=== PATIENT | male | born 1975 | race Caucasian/White ===

== ENCOUNTER 2017-03-31 12:25 | Emergency (ER) | payer MEDICARE, MEDICAID ==
[~2017-03-31] VITALS: Ht 175.3 cm; Wt 149.7 kg
--- NOTE | 2017-03-31 12:54 | Emergency Room Report ---
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 N Clinical Suspician of Infection? N Mental Status: 1 - Regular (Normal Baseline) Sepsis Risk:Possible Sepsis Risk Have you (or family members/close friends) recently traveled outside the [place]? N If Yes, where/when: Have you had exposure to infectious disease within the past month? N TB? Other? Specify: AC unit fell onto his right knee and slid down pretibial area on R; c/o bruising to R pretibial area, diffuse pain; he drove to the ED w these complaints. ALLERGIES Coded Allergies: No Known Allergies (03/31/17) Home Medications Reported Medications No Known Home Medications History Medical History General CAD? No Angina: No [place]: No Hypertension? No Hyperlipidemia? No CHF? No DVT? No PE? No COPD? Yes Asthma? No Anemia? No GERD? No Gastric ulcers? No GI Bleed? No Hernia? No Thyroid Problems? No Hypothyroidism? No CVA? No Seizures? No Diabetes? No End Stage Renal Disease? No UTI? No Stones? No BPH? No GB Disease: No Nephritic Syndrome? No Asplenia? No Hepatitis? No Sickle Cell Disease? No Arthritis? No Migraines? No Cataracts? No Glaucoma? No MRSA? No HIV? No TB? No Anxiety? No Depression? No Cancer? No Site: N More? No Immunization Hx DT/Tetanus > 10 Years Ago Surgical Hx Previous Surgery?N Social History Smoking Hx Smoker: Current Every Day Smoker Tobacco: Yes Type Cigarettes Alcohol Alcohol: No Review of Systems All Other Systems Reviewed and Negative Musculoskeletal see HPI Skin see HPI Physical Exam Vital Signs Vital Signs Date Time Temp Pulse Resp B/P Pulse O2 O2 Flow FiO2 Ox Delivery Rate 03/31 1332 98.2 96 20 130/99 95 03/31 1306 20 03/31 1230 98.2 96 20 130/99 95 General Appearance normal appearance, WD/WN, no apparent distress, obese Eye Exam - bilateral eye normal exam, bilateral eye PERRL, bilateral eye EOMI Respiratory Status Yes: trachea midline. No: respiratory distress. Cardiovascular no peripheral edema, normal peripheral pulses Extremities diffuse pain, right knee, with neg anterior drawer sign, no laxity, no ballottement, no pain with varus or valgus maneuver; mid pretibial area slightly contused and abraded. FROM all joint, foot warm and well perfused, calf soft to palpation, CR less than two seconds, sensate throughout, brisk pop/DP/PT pulses. Strength 5 Upper Ext (L), 5 Upper Ext (R), 5 Lower Ext (L) Neurologic alert, normal exam, no motor/sensory deficits, oriented x 3 Medical Decision Making LABS/Meds/Orders Pt receiving controlled substance in ED? No Results/Orders Current Medication Orders Sig/Jc Start time Last Medication Dose Route Stop Time Status Admin Ketorolac 0 .STK-MED ONE 03/31 1303 DC Tromethamine .ROUTE Ketorolac 60 MG ONCE ONE 03/31 1300 DC 03/31 Tromethamine IM 03/31 1301 1306 Orders Procedure Date/time Status LOWER LEG-RT 03/31 1250 Active KNEE-3 VIEWS-RT 03/31 1250 Active XRAY/CT/US XRAY/CT/US XRAY knee, leg XR interpretation by reviewed by me Xray Results abnormal (a little STS neg fx ) Departure Departure Time of Disposition 1420 Disposition DC Home or Self Care(routine) Clinical Impression Primary Impression: Contusion of right leg Qualifiers: Encounter type: initial encounter Qualified Code: S80.11XA - Contusion of right lower leg, initial encounter Condition STABLE Referrals Alejandro Franz MD Patient Instructions Contusion Additional Instructions Keep leg elevated; RX Naproxen; see Dr. Franz for follow up one to two days; if blue or cold foot, go to closest ER; watch very closely for increased swelling to calf. Discharge Counseling Counseled pt/family regarding diagnosis, medications/RX, home care, follow up needs (s/sx to watch for comptsyndrom) Prescriptions Current Visit Scripts NAPROXEN (NAPROXEN 500MG TAB) 500 MG PO BIDP PRN pain #20 TAB ED Critical Care Critical Care No at 1429
[2017-03-31 14:35] VITALS: BP 130/99
--- NOTE | 2017-03-31 15:58 | RADIOLOGY REPORT PS360 ---
KNEE-3 VIEWS-RT HISTORY: Right knee pain and swelling and bruising direct blow ORDERING PHYSICIAN: Lesley Karimi MD PATIENT AGE: 41 years COMPARISON: None FINDINGS: No fracture or dislocation. No lytic or blastic change. Normal mineralization. No significant arthritic changes evident. No other significant findings IMPRESSION: Negative Knee
--- NOTE | 2017-03-31 15:58 | RADIOLOGY REPORT PS360 ---
LOWER LEG-RT HISTORY: Pain following injury direct blow ORDERING PHYSICIAN: Lesley Karimi MD PATIENT AGE: 41 years COMPARISON: None FINDINGS: No fracture or dislocation. Unremarkable soft tissues IMPRESSION: Negative right tib-fib.
--- OUTSIDE RECORDS SUMMARY | 2017-04-23 03:46 | External Medical Summary Rpt ---
Author Author , SHANNON ORTEGA Address Unknown Phone [email or web address] Purpose Continuity of Care Document - through 2016 Problems Code Diagnosis DOS Provider Status J44.9 Chronic obstructive pulmonary disease, unspecified S80.11XA CONTUSION OF RIGHT LOWER LEG, INITIAL ENCOUNTER S87.80XA Crushing injury of unspecified lower leg, initial encounter S87.81XA Crushing injury of right lower leg, initial encounter S93.401A Sprain of unspecified ligament of right ankle, initial encounter S93.409A Sprain of unspecified ligament of unspecified ankle, initial encounter X50.1XXA Overexertio n from prolonged static or awkward postures, initial encounter Z53.20 PROC/TRTMT NOT CRD OUT BEC PT DECISION FOR UNSP REASONS
--- OUTSIDE RECORDS SUMMARY | 2017-04-23 03:46 | External Medical Summary Rpt ---
Author Author SHANNON Hobson, SHANNON Hobson Organization [employer] Address Unknown Phone Unavailable
--- OUTSIDE RECORDS SUMMARY | 2017-04-23 03:46 | External Medical Summary Rpt ---
Author Author SHANNON Address Unknown Phone [email or web address] Purpose Continuity of Care Document - through 2016
--- OUTSIDE RECORDS SUMMARY | 2017-04-23 03:46 | External Medical Summary Rpt ---
Demographics Preferred Language Uzbek Marital Status Unknown Confucianist Affiliation Unknown Race Unknown Ethnic Group Unknown Author Author SHANNON Address Unknown Phone Immunization No patient found.
--- OUTSIDE RECORDS SUMMARY | 2017-04-23 03:46 | External Medical Summary Rpt ---
Author Author SHANNON Address Unknown Phone [email or web address] Purpose Continuity of Care Document - through 2016
--- OUTSIDE RECORDS SUMMARY | 2017-04-23 03:46 | External Medical Summary Rpt ---
Author Author , SHANNON ORTEGA Address Unknown Phone [email or web address] Purpose Continuity of Care Document - through [...]
--- OUTSIDE RECORDS SUMMARY | 2017-04-23 03:46 | External Medical Summary Rpt ---
Demographics Preferred Language Tajik Marital Status Unknown Baptism Affiliation Unknown Race Unknown Ethnic Group Unknown Author Author SHANNON Address Unknown Phone Immunization No patient found.
== END 2017-03-31 14:35 | disposition home or self-care (01) ==
LOC: ER 12:25
DX: S80.11XA Contusion of right lower leg, initial encounter (principal); W20.8XXA Other cause of strike by thrown, projected or falling object, initial encounter; Y92.9 Unspecified place or not applicable; F17.210 Nicotine dependence, cigarettes, uncomplicated

== ENCOUNTER 2017-04-04 18:46 | Emergency (ER) | payer MEDICARE, MEDICAID ==
[~2017-04-04] VITALS: Ht 175.3 cm; Wt 149.2 kg
[~2017-04-04 18:46] MED LIST: NAPROXEN SODIU500 MG PO
[2017-04-04 20:36] VITALS: BP 175/103
--- NOTE | 2017-04-05 07:03 | RADIOLOGY REPORT PS360 ---
ANKLE-RT-3 VIEWS HISTORY: Pain/sprain/strain with soft tissue swelling INJURY 4 DAYS AGO, INCREASED PAIN/SWELLING, BRUISING ORDERING PHYSICIAN: Mason Davenport MD PATIENT AGE: 41 years COMPARISON: None FINDINGS: No fracture or dislocation. No lytic or blastic change. There is normal mineralization.. The joint spaces are well-preserved. No significant degenerative/arthritic changes. No erosive changes evident. There is mild soft tissue swelling involving the medial aspect of the ankle IMPRESSION: Soft tissue swelling otherwise negative
--- NOTE | 2017-04-05 07:04 | RADIOLOGY REPORT PS360 ---
KNEE-3 VIEWS-RT HISTORY: Pain and swelling INJURY 4 DAYS AGO, INCREASED PAIN/SWELLING, BRUISING ORDERING PHYSICIAN: Mason Davenport MD PATIENT AGE: 41 years COMPARISON: None FINDINGS: No fracture or dislocation. No lytic or blastic change. Normal mineralization. No significant arthritic changes evident. No other significant findings IMPRESSION: Negative Knee
--- NOTE | 2017-04-05 07:04 | RADIOLOGY REPORT PS360 ---
FOOT-RT-3 VIEWS HISTORY: Pain and swelling INJURY 4 DAYS AGO, INCREASED PAIN/SWELLING, BRUISING ORDERING PHYSICIAN: Mason Davenport MD PATIENT AGE: 41 years COMPARISON: None FINDINGS: No fracture or dislocation. No lytic or blastic change. There is normal mineralization.. The joint spaces are well-preserved. No significant degenerative/arthritic changes. No erosive changes evident. IMPRESSION: Negative, no acute finding
== END 2017-04-04 21:31 | disposition left against medical advice (07) ==
LOC: ER 18:46
DX: Z53.29 Procedure and treatment not carried out because of patient's decision for other reasons (principal); M25.561 Pain in right knee; M79.671 Pain in right foot; M25.571 Pain in right ankle and joints of right foot

== ENCOUNTER 2017-06-01 18:53 | Emergency (ER) | payer MEDICARE, MEDICAID ==
[~2017-06-01] VITALS: Ht 175.3 cm; Wt 147.4 kg
--- OUTSIDE RECORDS SUMMARY | 2017-06-01 18:57 | External Medical Summary Rpt ---
Author Author [facility] Organization [facility] Address Unknown Phone Unavailable Care Team Providers Care Extractor Puller Name Role Phone DR NURA PCP [phone] [facility] [id number] Date(s): 04/04/17 - 04/05/17 [facility] [address] [place] [id number]- Discharge Diagnosis: Ankle sprain Discharge Diagnosis: Crush injury of leg Discharge Disposition: OP Self Care or Home Attending Physician: CINDY POLLACK DO Admitting Physician: CINDY POLLACK DO Referring Physician: CINDY POLLACK DO Reason for Visit SPRAIN OF UNSP LIGAMENT OF UNSPECIFIED ANKLE, INIT ENCNTR Vital Signs No data available for this section Problem List Condition Effective Status Health Informant Dates Status Chronic Active obstructive pulmonary disease(Conf irmed) Allergies, Adverse Reactions, Alerts No data available for this section Medications acetaminophen-hydrocodone ([place] 5 mg-325 mg oral tablet)1 Tablet(s) Oral Every 4 Hours as needed for pain for 3 Day(s). Refills: 0.Ordering provider: JENNIFER AGUILAR MD-YESSENIA ibuprofen (ibuprofen 600 mg oral tablet)1 Tablet(s) Oral Every 6 Hours for 10 Day(s). Refills: 0.Ordering provider: JENNIFER AGUILAR MD-EMR sulfamethoxazole-trimethoprim (Bactrim DS 800 mg-160 mg oral tablet)1 Tablet(s) Oral Two Times A Day for 7 Day(s). Refills: 0.Ordering provider: JENNIFER AGUILAR MD-YESSENIA Results No data available for this section Immunizations No data available for this section Procedures No data available for this section Social History No data available for this section Assessment and Plan No data available for this section Hospital Discharge Instructions Patient EducationAnkle Sprain
--- OUTSIDE RECORDS SUMMARY | 2017-06-01 18:57 | External Medical Summary Rpt | CCD ---
Demographics Preferred Language Georgian Marital Status Unknown Scientologist Affiliation Unknown Race Unknown Ethnic Group Unknown Author Author , SHANNON ORTEGA Address Unknown Phone Immunization No patient found.
--- OUTSIDE RECORDS SUMMARY | 2017-06-01 18:57 | External Medical Summary Rpt ---
Author Author [facility] Organization [facility] Address Unknown Phone Unavailable Care Team Providers Care Web Interface Developer Name Role Phone DR NURA PCP [phone] Encounter [facility] [id number] Date(s): 04/04/17 - 04/05/17 [facility] [address] [place] [address]- [phone] Discharge Diagnosis: Ankle sprain Discharge Diagnosis: Crush [...] data available for this section Medications acetaminophen-hydrocodone ([place] 5 mg-325 mg oral tablet)1 Tablet(s) Oral [...]
--- OUTSIDE RECORDS SUMMARY | 2017-06-01 18:57 | External Medical Summary Rpt | CCD ---
Author Author , SHANNON ORTEGA Address Unknown Phone [email or web address] Purpose Continuity of Care Document - through [...]
--- OUTSIDE RECORDS SUMMARY | 2017-06-01 18:57 | External Medical Summary Rpt | CCD ---
Author Author , SHANNON ORTEGA Address Unknown Phone [email or web address] Purpose Continuity of Care Document - through [...]
--- OUTSIDE RECORDS SUMMARY | 2017-06-01 18:57 | External Medical Summary Rpt | CCD ---
Author Author SHANNON Address Unknown Phone [email or web address] Purpose Continuity of Care Document - through 2016
--- OUTSIDE RECORDS SUMMARY | 2017-06-01 18:57 | External Medical Summary Rpt | CCD ---
Author Author SHANNON Address Unknown Phone [email or web address] Purpose Continuity of Care Document - through 2016
--- OUTSIDE RECORDS SUMMARY | 2017-06-01 18:57 | External Medical Summary Rpt | CCD ---
Demographics Preferred Language Azeri Marital Status Unknown Scientology Affiliation Unknown Race Unknown Ethnic Group Unknown Author Author , SHANNON ORTEGA Address Unknown Phone Immunization No patient found.
--- NOTE | 2017-06-01 19:25 | Urgent Treatment Center Report ---
See Addendum History of Present Issue Date/Time Seen by Provider 06/01/171908 Visit Reason Pt arrived:Walked Presenting Problem:PT C/O COUGH,CHEST CONGESTION X1 WEEK Location if Accident: Onset of symptoms date/time:/ or onset unknown for:MEDICAL HX UNKNOWN Have you (or family members/close friends) recently traveled outside the [place]? N If Yes, where/when: Have you had exposure to infectious disease within the past month? TB? Other? Specify: Patient states that he has been having cough and congestion for over a week now State that his throat is sore and his throat is raw and hurts when he swallows. State that it has continued to get worse. State that today he began having sinus drainage that was draining down the back of her throat State that his mother had pneumonia and he was worried that he may have it too ALLERGIES Coded Allergies: No Known Allergies (03/31/17) History Medical History General CAD? No Angina: No [place]: No Hypertension? No Hyperlipidemia? No CHF? No DVT? No PE? No COPD? Yes Asthma? No Anemia? No GERD? No Gastric ulcers? No GI Bleed? No Hernia? No Thyroid Problems? No Hypothyroidism? No CVA? No Seizures? No Diabetes? No Renal Insuffiency? No UTI? No Stones? No BPH? No GB Disease: No Nephritic Syndrome? No Asplenia? No Hepatitis? No Sickle Cell Disease? No Arthritis? No Migraines? No Cataracts? No Glaucoma? No MRSA? No HIV? No TB? No Anxiety? No Depression? No Cancer? No More? No Immunization HX DT/Tetanus > 10 Years Ago Surgical Hx Previous Surgery?N Social History Smoking Hx Smoker: Current Every Day Smoker Tobacco: Yes Type Cigarettes Alcohol Alcohol: No Review of Systems All Other Systems Reviewed and Negative Constitutional chills, fever ENT nose congestion, throat pain. Respiratory cough, shortness of breath, denies stridor Physical Exam Vital Signs Vital Signs Date Time Temp Pulse Resp B/P Pulse O2 O2 Flow FiO2 Ox Delivery Rate 06/01 1902 98.8 74 20 141/85 96 General Appearance normal appearance, WD/WN, no apparent distress Ear, Nose, Throat tonsillar swelling, Throat red, irritated, drainage noted in back of throat, tenderness noted maxillary sinuses Respiratory Status Yes: trachea midline, chest symmetrical, non tender chest. No: respiratory distress. Lung Sounds bilateral: rhonchi, wheezing. Cardiovascular normal exam, regular rate/rhythm, no peripheral edema Neurologic alert, normal exam, oriented x 3 Medical Decision Making LABS/Meds/Orders Pt receiving controlled substance in ED? No Results/Orders Current Medication Orders Sig/Jc Start time Last Medication Dose Route Stop Time Status Admin Albuterol 2 PUFFS Q4H6 06/01 2200 AC IH Albuterol/Ipratropium 3 ML ONCE ONE 06/01 1945 AC INH 06/01 1946 Miscellaneous 1 UNIT ONCE ONE 06/01 1945 AC XX 06/01 1946 Orders Procedure Date/time Status RT REQUEST ALBUTEROL INHALER 06/01 1941 Active CULTURE, SPUTUM 06/01 1939 Active RT REQUEST DUONEB 06/01 1932 Active UTC STREP SCREEN 06/01 1907 Active CHEST(2 VIEWS-NOT PORTABLE) 06/01 1904 Active Departure Departure Time of Disposition 1923 Disposition DC Home or Self Care(routine) Clinical Impression Primary Impression: Sinusitis Qualifiers: Sinusitis location: unspecified location Chronicity: unspecified Qualified Code: J32.9 - Chronic sinusitis, unspecified Condition STABLE Patient Instructions DI for Sinusitis, Sinus Headache, Sinusitis Additional Instructions * No sign of bacterial infection. Likely viral. Virus can take 7-14 days to run their course *Nasal saline and bulb syringe or nose walter to remove nasal drainage and help with nasal congestion. Hard to eat, drink, or sleep with nasal congestion so important to keep nose cleaned out. * Monitor Temp. Tylenol and/or Ibuprofen as needed. ER if fever is no less than 101 despite alternating Tylenol and Ibuprofen * Encourage fluids, water, Gatorade, powerade, pedialyte if /toddler/or child * Warm salt water gargles for throat irritation *Warm fluids *Sore throat lozenges *Sleep elevated *humidifier or vaporizer Lots of rest Increase fluids, water, Gatorade, powerade *Your throat swab was sent to lab for culture. Those results area typically sent to your primary care physician. Be sure to follow up in 2-3 days if no improvement so they can review those results and treat if necessary If you dont have primary care I recommend you get one, but in the mean time you will have to return to a walk in clinic Follow up IMMEDIATELY for new or worsening of symptoms OR no noticeable improvement over the next 48-72 hours. 911 immediately for any life threatening symptoms such as chest pain or difficulty breathing Discharge Counseling Counseled pt/family regarding diagnosis, test results, medications/RX, home care Prescriptions Current Visit Scripts Levofloxacin (Levaquin 500MG) 500 MG PO DAILY #10 TAB Benzonatate (Tessalon Perle) 100 MG PO TID #15 SGL Albuterol Sulfate (Proair Hfa) 2 PUFFS IH QID #1 INH at 1941
[2017-06-01] MEDS ORDERED: LEVAQUIN500 MG PO (19:32)
[2017-06-01] MEDS ORDERED: TESSALON PERLE100 M1 PO (19:33)
[2017-06-01] MEDS ORDERED: PROAIR HFA0.09 MG/AC IH (19:40)
[2017-06-01 20:38] VITALS: BP 141/85
--- NOTE | 2017-06-01 22:44 | RADIOLOGY REPORT PS360 ---
CHEST(2 VIEWS-NOT PORTABLE) Ordering Physician: MANNY TRUJILLO APRN Patient Age: 41 years: Male HISTORY: PRODUCTIVE COUGH AND CHEST CONGESTION X1 WEEK TECHNIQUE: PA and lateral chest. COMPARISON :No previous FINDINGS Heart linda and mediastinal structures appear satisfactory. No definitive pneumonia. Question some slight coarsening of central markings on left which could reflect bronchitis mild central airway inflammation. However no focal pneumonia evident. No pleural effusion. No pneumothorax. IMPRESSION: . No focal pneumonia. Question minor central airway inflammatory changes bilateral. Subtle but could reflect mild bronchitis changes
== END 2017-06-01 20:38 | disposition home or self-care (01) ==
LOC: UTC 18:53
DX: J32.9 Chronic sinusitis, unspecified (principal); F17.210 Nicotine dependence, cigarettes, uncomplicated; J44.9 Chronic obstructive pulmonary disease, unspecified

== ENCOUNTER 2017-06-25 20:08 | Emergency (ER) | payer MEDICARE, MEDICAID ==
[~2017-06-25] VITALS: Ht 175.3 cm; Wt 149.8 kg
[~2017-06-25 20:08] MED LIST changes: +LEVAQUIN500 MG PO; +PROAIR HFA0.09 MG/AC IH; +TESSALON PERLE100 M1 PO
--- OUTSIDE RECORDS SUMMARY | 2017-06-25 20:15 | External Medical Summary Rpt | CCD ---
Author Author , SHANNON ORTEGA Address Unknown Phone [email or web address] Purpose Continuity of Care Document - 06-01-2017 through 2016 Problems Code Diagnosis DOS Provider [...] OUT BEC PT DECISION FOR UNSP REASONS Results Labs Lab Lab Date Result Refere Interp Status Commen Order Detail nces retati t Range on Streptococcus pneumoniae automated antibiotic susceptibility test (06-05-2017 06:25) Ampicil 11-23-2 <= 0.25 complet tomas 017 ug/ml ed suscept 06:25 ibility test by minimum inhibit ory concent ration Clindam 1123-2 <= 0.25 complet ycin 017 ug/ml ed suscept 06:25 ibility test by minimum inhibit ory concent ration Ceftria 23-2 <= 0.12 complet xone 017 ug/ml ed suscept 06:25 ibility test by minimum inhibit ory concent ration Cefotax 11-23-2 <= 0.12 complet mami 017 ug/ml ed suscept 06:25 ibility test by minimum inhibit ory concent ration Erythro 23-2 <= 0.12 complet mycin 017 ug/ml ed suscept 06:25 ibility test by minimum inhibit ory concent ration Levoflo -23-2 = 0.5 complet xacin 017 ug/ml ed suscept 06:25 ibility test by minimum inhibit ory concent ration Vancomy = 0.5 complet bettye 017 ug/ml ed suscept 06:25 ibility test by minimum inhibit ory concent ration Sputum culture (06-01-2017 19:45) Sputum [id number] complet culture 017 9 ed 19:45 Strepto coccus anginos us SCT STRCON STREPTO COCCUS CONSTEL LATUS L Screening group A Streptococcus antigen (06-01-2017 19:07) Screeni NOT NOTDETE complet ng 0[address] ed group A 19:07 D NOT DETECTE Strepto D L coccus antigen Comment: LOT # @[id number] EXP DATE @2020-03-06 Streptococcus pyogenes Ag [Presence] in Unspecified specimen (06-01-2017 19:07) Strepto NOT NOTDETE complet coccus 0[address] ed pyogene 19:07 D s Ag [Presen ce] in Unspeci fied specime n
--- OUTSIDE RECORDS SUMMARY | 2017-06-25 20:15 | External Medical Summary Rpt | CCD ---
Author Author , SHANNON ORTEGA Address Unknown Phone [email or web address] Purpose Continuity of Care Document - 06-01-2017 [...] concent ration Sputum culture (06-01-2017 19:45) Sputum [id number] complet culture 017 9 ed 19:45 Strepto coccus anginos us SCT STRCON STREPTO COCCUS CONSTEL LATUS L Screening group A Streptococcus antigen (06-01-2017 19:07) Screeni NOT NOTDETE complet ng 0[address]ED ed group A 19:07 D NOT DETECTE Strepto D L coccus antigen Comment: LOT # @[id number] EXP DATE @2020-03-06 Streptococcus pyogenes Ag [Presence] in Unspecified specimen (06-01-2017 19:07) Strepto NOT NOTDETE complet coccus 0[address] ed pyogene 19:07 D s Ag [Presen ce] in Unspeci fied specime n
--- OUTSIDE RECORDS SUMMARY | 2017-06-25 20:16 | External Medical Summary Rpt | CCD ---
Demographics Preferred Language Israeli Marital Status Unknown Jew Affiliation Unknown Race Unknown Ethnic Group Unknown Author Author SHANNON Address Unknown Phone [email or web address] Purpose Continuity of Care Document - through 2016
--- OUTSIDE RECORDS SUMMARY | 2017-06-25 20:16 | External Medical Summary Rpt | CCD ---
Demographics Preferred Language Turkish Marital Status Unknown Hindu Affiliation Unknown Race Unknown Ethnic Group Unknown Author Author , SHANNON ORTEGA Address Unknown Phone Immunization No patient found.
--- OUTSIDE RECORDS SUMMARY | 2017-06-25 20:16 | External Medical Summary Rpt ---
Author Author SHANNON Hobson, [employer] Organization [employer] Address Unknown Phone Unavailable Results Streptococcus pyogenes Ag [Presence] in Unspecified specimen Observa Value Referen Units Interpr Notes Date tion ce etation Range Strepto NOT NOTDETE No No LOT # Nov coccus DETECTE CTED informa informa @[id number] pyogene D tion in tion in 7 EXP 7:07 PM s Ag source source DATE [Presen data data @ ce] in 03-06 Unspeci fied specime n
--- OUTSIDE RECORDS SUMMARY | 2017-06-25 20:16 | External Medical Summary Rpt | CCD ---
Demographics Preferred Language Albanian Marital Status Unknown Mandaen Affiliation Unknown Race Unknown Ethnic Group Unknown Author Author , SHANNON ORTEGA Address Unknown Phone Immunization No patient found.
--- OUTSIDE RECORDS SUMMARY | 2017-06-25 20:16 | External Medical Summary Rpt | CCD ---
Demographics Preferred Language Bhutanese Marital Status Unknown Islam Affiliation Unknown Race Unknown Ethnic Group Unknown Author Author SHANNON Address Unknown Phone [email or web address] Purpose Continuity of Care Document - through 2016
--- OUTSIDE RECORDS SUMMARY | 2017-06-25 20:16 | External Medical Summary Rpt ---
Author Author SHANNON Hobson, [employer] Address Unknown Phone Unavailable Results Streptococcus pyogenes Ag [Presence] in Unspecified specimen Observa Value Referen Units Interpr Notes Date tion ce etation Range Strepto NOT NOTDETE No No LOT # Nov coccus DETECTE CTED informa informa @[id number] pyogene D tion in tion in 7 EXP 7:07 PM s Ag source source DATE [Presen data data @ ce] in 03-06 Unspeci fied specime n
[2017-06-25 20:53] VITALS: BP 141/72
== END 2017-06-25 21:09 | disposition left against medical advice (07) ==
LOC: UTC 20:08
DX: Z53.29 Procedure and treatment not carried out because of patient's decision for other reasons (principal); K62.5 Hemorrhage of anus and rectum